=== PATIENT | male | born 1980 | race Caucasian/White ===

== ENCOUNTER 2018-08-25 14:21 | Emergency (ER) | payer MEDICAID ==
[~2018-08-25] VITALS: Ht 165.1 cm; Wt 76.7 kg
[2018-08-25 14:29] VITALS: BP 149/90; Ht 165.1 cm; Wt 76.7 kg
== END 2018-08-25 15:30 | disposition short-term general hospital (02) ==
LOC: ED 14:21
DX: Z89.012 Acquired absence of left thumb (principal)
CPT/HCPCS: 90715; J0690; J2001; J3010; J7030; Q0092